=== PATIENT | male | born 1960 | race African-American/Black ===

== ENCOUNTER 2019-08-16 10:36 | Inpatient (IN) | payer OTHER ==
[2019-08-16 11:14] VITALS: BMI 34.6
--- NOTE | 2019-08-16 11:31 | HP ---
CIWA Score Nausea/Vomitin Muscle Tremors: 3 Anxiety: 3 Agitation: 3 Paroxysmal Sweats: 1-Minimal Palms Moist Orientation: 0-Oriented Tacttile Disturbances: 0-None Auditory Disturbances: 0-None Visual Disturbances: 1-Very Mild Sensitivity Headache: 0-None Present CIWA-Ar Total Score: 14 - Admission Criteria OASAS Guidelines: Admission for Medically Managed Detox: Requires at least one of the followin. CIWA greater than 12 2. Seizures within the past 24 hours 3. Delirium tremens within the past 24 hours 4. Hallucinations within the past 24 hours 5. Acute intervention needed for co occurring medical disorder 6. Acute intervention needed for co occurring psychiatric disorder 7. Severe withdrawal that cannot be handled at a lower level of care (continued vomiting, continued diarrhea, abnormal vital signs) requiring intravenous medication and/or fluids 8. Admitting History and Physical - Admission Chief Complaint: " I want to go to detox because I got to stop using alcohol and cocaine." History of Present Illness: 58 year old black male with history of alcohol dependence with withdrawal and cocaine use disorder. He is using alcohol: 5-6 cans of beer daily and 1/2 - 1pint of vodka as well, last used 08/15/19 and been drinking since the age of [age] years old. He admits to [facility] and last one was 11/2018. He denies withdrawal seizures. Hospitalized once for pancreatitis from overdrinking. He is using cocaine about $20-$800 per day. He smokes 1 pack every other day, since age of [age] years old PMH: HTN, DM, Hypertriglyceridemia Psurg: Thyroidectomy due 5 mmg malignant tumor. He received chemotherapy for 1 month. Psych: None History Source: Patient Limitations to Obtaining History: No Limitations - Past Medical History Cardiovascular: Yes: HTN, Hyperlipdemia Endocrine: Yes: Diabetes Mellitus, Hypothyroidism - Past Surgical History Past Surgical History: Yes: None - Advance Directives Advance Directives: No: Living Will, Health Care Proxy, DNR - Alcohol/Substance Use Hx Alcohol Use: Yes (6 beers daily) Number of Drinks Daily: 6 History of Substance Use: reports: Cocaine Date of Last Use: 08/15/19 - Social History Usual Living Arrangement: Yes: Alone Do you think of yourself as: Straight/Heterosexual ADL: Independent Occupation: unemployed History of Recent Travel: No Admission ROS S - HPI Allergies/Adverse Reactions: Allergies Allergy/AdvReac Type Severity Reaction Status Date / Time clindamycin Allergy Hives Verified 08/16/19 10:57 Exam Limitations: No Limitations - Ebola screening Have you traveled outside of the country in the last 21 days: No Have you had contact with anyone from an Ebola affected area: No Have you been sick,other than usual withdrawal symptoms: No Do you have a fever: No - Review of Systems Constitutional: No Symptoms Reported EENT: reports: No Symptoms Reported Respiratory: reports: No Symptoms reported Cardiac: reports: No Symptoms Reported GI: reports: No Symptoms Reported : reports: No Symptoms Reported Musculoskeletal: reports: Back Pain, Muscle Pain Integumentary: reports: No Symptoms Reported Neuro: reports: No Symptoms reported Endocrine: reports: No Symptoms Reported Hematology: reports: No Symptoms Reported Psychiatric: reports: Judgement Intact, Mood/Affect Appropiate, Orientated x3 Other Systems: Reviewed and Negative Patient History - Patient Medical History Hx Anemia: No Hx Asthma: No Hx Chronic Obstructive Pulmonary Disease (COPD): No Hx Cancer: Yes (thyroid cancer removed 2004) Hx Cardiac Disorders: No Hx Congestive Heart Failure: No Hx Hypertension: Yes Hx Hypercholesterolemia: Yes Hx Pacemaker: No HX Cerebrovascular Accident: No Hx Seizures: No Hx Dementia: No Hx Diabetes: Yes Hx Gastrointestinal Disorders: No Hx Liver Disease: Yes (elevated liver enzymes) Hx Genitourinary Disorders: No Hx Sexually Transmitted Disorders: No Hx Renal Disease (ESRD): No Hx Thyroid Disease: Yes Hx Human Immunodeficiency Virus (HIV): No Hx Hepatitis C: No Hx Depression: No Hx Suicide Attempt: No Hx Bipolar Disorder: No Hx Schizophrenia: No - Patient Surgical History Past Surgical History: Yes Hx Neurologic Surgery: No Hx Cataract Extraction: No Hx Cardiac Surgery: No Hx Lung Surgery: No Hx Breast Surgery: No Hx Breast Biopsy: No Hx Abdominal Surgery: No Hx Appendectomy: No Hx Cholecystectomy: No Hx Genitourinary Surgery: No Hx Section: No Hx Orthopedic Surgery: No Hx Hysterectomy: No Other Surgical History: thyroidectomy Anesthesia Reaction: No - PPD History Previous Implant?: Yes Documented Results: Negative w/o proof Implanted On Prior R Admission?: No Date: 11/17/18 (done at [facility]) Results: negative PPD to be Administered?: Yes - Smoking Cessation Smoking history: Current every day smoker Have you smoked in the past 12 months: Yes Aproximately how many cigarettes per day: 5 Hx Chewing Tobacco Use: No Initiated information on smoking cessation: Yes 'Breaking Loose' booklet given: 08/16/19 - Substances abused Alcohol Substance route: Oral Frequency: Daily Amount used: 5-6 cans of beers & 1- 1 1/2 pints of beers Age of first use: 19 Date of last use: 08/15/19 Cocaine Substance route: Inhalation Frequency: 3-6 times per week Amount used: $800 Age of first use: 26 Date of last use: 08/13/19 Admission Physical Exam [facility] - Vital Signs Vital Signs: Vital Signs - 24 hr 08/16/19 10:54 Temperature 97.0 F L Pulse Rate 59 L Respiratory 16 Rate Blood Pressure 154/95 - Physical General Appearance: Yes: Moderate Distress, Tremorous, Irritable, Sweating, Anxious HEENTM: Yes: EOMI, Hearing grossly Normal, Normal ENT Inspection, Normocephalic , Normal Voice, SHY, Pharynx Normal, Tm's normal Respiratory: Yes: Chest Non-Tender, Lungs Clear, Normal Breath Sounds, No Respiratory Distress, No Accessory Muscle Use, Surgical Scar (lower neck scar from thyroidectomy) Neck: Yes: No masses,lesions,Nodules, Supple, Trachea in good position Breast: Yes: Within Normal Limits Cardiology: Yes: Regular Rhythm, Regular Rate, S1, S2 Abdominal: Yes: Normal Bowel Sounds, Non Tender, Soft, Protuberent, Other (some red scaley patches on lower abdomen). 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, Fully Oriented, Alert, Motor Strength 5/5, Normal Mood/Affect, Normal Response Integumentary: Yes: Normal Color, Warm Lymphatic: Yes: Within Normal Limits - Diagnostic (1) Alcohol dependence with withdrawal Current Visit: Yes Status: Acute (2) Cocaine use disorder Current Visit: Yes Status: Acute Cleared for Admission [facility] - Detox or Rehab [facility] Level of Care: Medically Managed (ATIVAN DETOX PROTOCOL) Detox Regimen/Protocol: Not Applicable (ativan detox protocol) Claeared for Rehab Admission: No Screened but not Admitted - Documentation of Visit Screened but not Admitted: No Vital Signs - Vital Signs Vital signs refused: No Inpatient Rehab Admission - Rehab Decision to Admit Inpatient rehab admission?: No
[2019-08-16] MEDS ORDERED: MAG HYDROX/AL HYDROX/SIMETH 30 ML UNIT-DOSE CUP PO PRN (11:51)
[2019-08-16] MEDS ORDERED: ACETAMINOPHEN 325 MG TABLET (FP) PO PRN ×2 (11:51)
[2019-08-16] MEDS ORDERED: MELATONIN 5 MG TABLETS PO PRN (11:51)
[2019-08-16] MEDS ORDERED: LORazepam 1 MG TABLET PO PRN (11:51)
[2019-08-16] MEDS ORDERED: BISMUTH SUBSALICYLATE 524 MG/30 ML UD PO PRN (11:51)
[2019-08-16] MEDS ORDERED: MENTHOL/PHENOL 1 EACH UD MM PRN (11:51)
[2019-08-16] MEDS ORDERED: IBUPROFEN 400 MG TABLET (FP) PO PRN (11:51)
[2019-08-16] MEDS ORDERED: MAGNESIUM CITRATE 300 ML BOTTLE PO PRN (11:51)
[2019-08-16] MEDS ORDERED: METHOCARBAMOL 500 MG TABLET PO PRN (11:51)
[2019-08-16] MEDS ORDERED: hydrOXYzine PAMOATE 25 MG CAPSULE (FP) PO PRN (11:51)
[2019-08-16] MEDS ORDERED: MAGNESIUM HYDROX 2400MG/30ML ORAL SUSPENSION 30 ML CUP PO PRN (11:51)
[2019-08-16] MEDS: LORazepam 2 MG TABLET PO SCH ×3 (13:04→22:20)
[2019-08-16 15:38] LABS: HEMATOCRIT 41.5 % (35.4-49); HEMOGLOBIN 13.7 GM/dL (11.7-16.9); MCHC 32.9 g/dl (32.0-35.9); MEAN CELL VOLUME 94.2 fl (80-96); MEAN PLT VOLUME 8.3 fl (7.5-11.1); PLATELET COUNT 266 K/MM3 (134-434); RBC 4.41 M/mm3 (4.00-5.60); RDW 14.4 % (11.9-15.9); WHITE BLOOD COUNT 5.3 K/mm3 (4.0-10.0)
[2019-08-16 15:42] LABS: ALBUMIN 3.9 g/dl (3.4-5.0); BILIRUBIN,TOTAL 0.2 mg/dL (0.2-1); BLOOD UREA NITROGEN 9.5 mg/dL (7-18); CALCIUM 8.5 mg/dL (8.5-10.1); POTASSIUM 4.2 mmol/L (3.5-5.1); TOT PROT 7.3 g/dl (6.4-8.2)
[2019-08-16] MEDS: metFORMIN HCL 500 MG TABLET (FP) PO SCH (17:30)
[2019-08-16] MEDS: GEMFIBROZIL 600 MG TABLET (FP) PO SCH (17:49)
[2019-08-16] MEDS: THIAMINE HCL 100 MG TABLET (FP) PO SCH (22:20)
[2019-08-16] MEDS: ATENOLOL 50 MG TABLET (FP) PO SCH (22:20)
[2019-08-17] MEDS: LORazepam 2 MG TABLET PO SCH ×4 (06:32→22:29)
[2019-08-17] MEDS: glipiZIDE 10 MG TABLET (FP) PO SCH (07:32)
[2019-08-17] MEDS: metFORMIN HCL 500 MG TABLET (FP) PO SCH ×2 (07:33→17:49)
[2019-08-17] MEDS: LEVOTHYROXINE NA 100 MCG TABLET (FP) PO SCH (07:33)
[2019-08-17] MEDS: PATIENT'S OWN MEDICATION (NON-FORMULARY) (Insulin Glargine,Hum.Rec.Anlog [Basaglar Kwikpen SQ SCH (07:36)
--- NOTE | 2019-08-17 10:14 | PN ---
S CIWA - CIWA Score Nausea/Vomitin-Mild Nausea/No Vomiting Muscle Tremors: 2 Anxiety: 2 Agitation: 2 Paroxysmal Sweats: 1-Minimal Palms Moist Orientation: 0-Oriented Tacttile Disturbances: 1-Very Mild Itch/Numbness Auditory Disturbances: 0-None Visual Disturbances: 0-None Headache: 2-Mild CIWA-Ar Total Score: 11 S Progress Note (SOAP) Subjective: alert,irritable,anxious,interrupted sleep,tremor Objective: 08/17/19 10:12 Vital Signs Temperature 97.3 F L 08/17/19 09:14 Pulse Rate 75 08/17/19 09:14 Respiratory Rate 18 08/17/19 09:14 Blood Pressure 114/75 08/17/19 09:14 O2 Sat by Pulse Oximetry (%) Laboratory Last Values WBC 5.3 K/mm3 (4.0-10.0) 08/16/19 12:15 RBC 4.41 M/mm3 (4.00-5.60) 08/16/19 12:15 Hgb 13.7 GM/dL (11.7-16.9) 08/16/19 12:15 Hct 41.5 % (35.4-49) 08/16/19 12:15 MCV 94.2 fl (80-96) 08/16/19 12:15 MCH 31.0 pg (25.7-33.7) 08/16/19 12:15 MCHC 32.9 g/dl (32.0-35.9) 08/16/19 12:15 RDW 14.4 % (11.9-15.9) 08/16/19 12:15 Plt Count 266 K/MM3 (134-434) 08/16/19 12:15 MPV 8.3 fl (7.5-11.1) 08/16/19 12:15 Sodium 142 mmol/L (136-145) 08/16/19 12:15 Potassium 4.2 mmol/L (3.5-5.1) 08/16/19 12:15 Chloride 108 mmol/L (98-107) H 08/16/19 12:15 Carbon Dioxide 28 mmol/L (21-32) 08/16/19 12:15 Anion Gap 6 MMOL/L (8-16) L 08/16/19 12:15 BUN 9.5 mg/dL (7-18) 08/16/19 12:15 Creatinine 1.0 mg/dL (0.55-1.3) 08/16/19 12:15 Est GFR (CKD-EPI)AfAm 96.40 08/16/19 12:15 Est GFR (CKD-EPI)NonAf 83.18 08/16/19 12:15 POC Glucometer 129 UNITS (80-120) 08/17/19 07:29 Random Glucose 117 mg/dL (74-106) H 08/16/19 12:15 Calcium 8.5 mg/dL (8.5-10.1) 08/16/19 12:15 Total Bilirubin 0.2 mg/dL (0.2-1) 08/16/19 12:15 AST 17 U/L (15-37) 08/16/19 12:15 ALT 28 U/L (13-61) 08/16/19 12:15 Alkaline Phosphatase 55 U/L (45-117) 08/16/19 12:15 Total Protein 7.3 g/dl (6.4-8.2) 08/16/19 12:15 Albumin 3.9 g/dl (3.4-5.0) 08/16/19 12:15 HIV 1&2 Antibody Screen Negative 08/16/19 12:15 HIV P24 Antigen Negative 08/16/19 12:15 08/17/19 10:13 rpr pending Assessment: 08/17/19 10:13 withdrawal symptom Plan: continue detox ativan regimen,bgm monitoring
[2019-08-17] MEDS: amLODIPine BESYLATE 10 MG TABLET (FP) PO SCH (10:47)
[2019-08-17] MEDS: ATENOLOL 50 MG TABLET (FP) PO SCH ×2 (10:47→22:23)
[2019-08-17] MEDS: NICOTINE 7 MG/24 HOURS TOPICAL PATCH TD SCH (10:47)
[2019-08-17] MEDS: LISINOPRIL 5 MG TABLET (FP) PO SCH (10:47)
[2019-08-17] MEDS: ASPIRIN 81 MG CHEWABLE TABLETS PO SCH (10:47)
[2019-08-17] MEDS: PRENATAL VITAMINS W/ FOLIC ACID TABLET (FP) PO SCH (10:47)
[2019-08-17] MEDS: GEMFIBROZIL 600 MG TABLET (FP) PO SCH (17:51)
[2019-08-17] MEDS: THIAMINE HCL 100 MG TABLET (FP) PO SCH (22:23)
[2019-08-17] MEDS ORDERED: ATENOLOL 50 MG TABLET (FP) PO ONE (22:42)
[2019-08-18] MEDS ORDERED: glipiZIDE 5 MG TABLET (FP) ONE (06:04)
[2019-08-18] MEDS: PATIENT'S OWN MEDICATION (NON-FORMULARY) (Insulin Glargine,Hum.Rec.Anlog [Basaglar Kwikpen SQ SCH (08:27)
[2019-08-18] MEDS: LORazepam 1 MG TABLET PO SCH ×4 (08:27→22:28)
[2019-08-18] MEDS: glipiZIDE 10 MG TABLET (FP) PO SCH (08:27)
[2019-08-18] MEDS: metFORMIN HCL 500 MG TABLET (FP) PO SCH ×2 (08:27→17:39)
[2019-08-18] MEDS: LEVOTHYROXINE NA 100 MCG TABLET (FP) PO SCH (08:28)
--- NOTE | 2019-08-18 09:36 | PN ---
S CIWA - CIWA Score Nausea/Vomitin-Mild Nausea/No Vomiting Muscle Tremors: 2 Anxiety: 2 Agitation: 2 Paroxysmal Sweats: No Perspiration Orientation: 0-Oriented Tacttile Disturbances: 1-Very Mild Itch/Numbness Auditory Disturbances: 0-None Visual Disturbances: 0-None Headache: 1-Very Mild CIWA-Ar Total Score: 9 S Progress Note (SOAP) Subjective: alert,irritable,anxious,interrupted sleep,pain in th body,extremity Objective: 08/18/19 09:35 Vital Signs Temperature 98.6 F 08/18/19 09:15 Pulse Rate 57 L 08/18/19 09:15 Respiratory Rate 18 08/18/19 09:15 Blood Pressure 140/89 08/18/19 09:15 O2 Sat by Pulse Oximetry (%) Laboratory Last Values WBC 5.3 K/mm3 (4.0-10.0) 08/16/19 12:15 RBC 4.41 M/mm3 (4.00-5.60) 08/16/19 12:15 Hgb 13.7 GM/dL (11.7-16.9) 08/16/19 12:15 Hct 41.5 % (35.4-49) 08/16/19 12:15 MCV 94.2 fl (80-96) 08/16/19 12:15 MCH 31.0 pg (25.7-33.7) 08/16/19 12:15 MCHC 32.9 g/dl (32.0-35.9) 08/16/19 12:15 RDW 14.4 % (11.9-15.9) 08/16/19 12:15 Plt Count 266 K/MM3 (134-434) 08/16/19 12:15 MPV 8.3 fl (7.5-11.1) 08/16/19 12:15 Sodium 142 mmol/L (136-145) 08/16/19 12:15 Potassium 4.2 mmol/L (3.5-5.1) 08/16/19 12:15 Chloride 108 mmol/L (98-107) H 08/16/19 12:15 Carbon Dioxide 28 mmol/L (21-32) 08/16/19 12:15 Anion Gap 6 MMOL/L (8-16) L 08/16/19 12:15 BUN 9.5 mg/dL (7-18) 08/16/19 12:15 Creatinine 1.0 mg/dL (0.55-1.3) 08/16/19 12:15 Est GFR (CKD-EPI)AfAm 96.40 08/16/19 12:15 Est GFR (CKD-EPI)NonAf 83.18 08/16/19 12:15 POC Glucometer 105 UNITS (80-120) 08/18/19 06:11 Random Glucose 117 mg/dL (74-106) H 08/16/19 12:15 Calcium 8.5 mg/dL (8.5-10.1) 08/16/19 12:15 Total Bilirubin 0.2 mg/dL (0.2-1) 08/16/19 12:15 AST 17 U/L (15-37) 08/16/19 12:15 ALT 28 U/L (13-61) 08/16/19 12:15 Alkaline Phosphatase 55 U/L (45-117) 08/16/19 12:15 Total Protein 7.3 g/dl (6.4-8.2) 08/16/19 12:15 Albumin 3.9 g/dl (3.4-5.0) 08/16/19 12:15 RPR Titer Nonreactive (NONREACTIVE) 08/16/19 12:15 HIV 1&2 Antibody Screen Negative 08/16/19 12:15 HIV P24 Antigen Negative 08/16/19 12:15 Assessment: 08/18/19 09:35 withdrawal symptom Plan: continue detox ativan regimen
[2019-08-18] MEDS: ATENOLOL 50 MG TABLET (FP) PO SCH ×2 (10:23→22:28)
[2019-08-18] MEDS: PRENATAL VITAMINS W/ FOLIC ACID TABLET (FP) PO SCH (10:23)
[2019-08-18] MEDS: amLODIPine BESYLATE 10 MG TABLET (FP) PO SCH (10:23)
[2019-08-18] MEDS: LISINOPRIL 5 MG TABLET (FP) PO SCH (10:23)
[2019-08-18] MEDS: ASPIRIN 81 MG CHEWABLE TABLETS PO SCH (10:24)
[2019-08-18] MEDS: NICOTINE 7 MG/24 HOURS TOPICAL PATCH TD SCH (10:25)
[2019-08-18] MEDS: GEMFIBROZIL 600 MG TABLET (FP) PO SCH (17:39)
[2019-08-18] MEDS: THIAMINE HCL 100 MG TABLET (FP) PO SCH (22:28)
[2019-08-19] MEDS ORDERED: LORazepam 0.5 MG TABLET PO PRN
[2019-08-19] MEDS ORDERED: glipiZIDE 5 MG TABLET (FP) ONE (05:26)
[2019-08-19] MEDS: metFORMIN HCL 500 MG TABLET (FP) PO SCH ×2 (06:28→16:47)
[2019-08-19] MEDS: LORazepam 0.5 MG TABLET PO SCH ×4 (06:28→22:46)
[2019-08-19] MEDS: LEVOTHYROXINE NA 100 MCG TABLET (FP) PO SCH (06:28)
[2019-08-19] MEDS: glipiZIDE 10 MG TABLET (FP) PO SCH (06:29)
[2019-08-19] MEDS: PATIENT'S OWN MEDICATION (NON-FORMULARY) (Insulin Glargine,Hum.Rec.Anlog [Basaglar Kwikpen SQ SCH (06:32)
--- NOTE | 2019-08-19 10:29 | PN ---
S CIWA - CIWA Score Nausea/Vomitin-Mild Nausea/No Vomiting Muscle Tremors: 1-None Visible, but Opp Anxiety: 1-Mildly Anxious Agitation: 1-Slight > Activity Paroxysmal Sweats: No Perspiration Orientation: 0-Oriented Tacttile Disturbances: 1-Very Mild Itch/Numbness Auditory Disturbances: 0-None Visual Disturbances: 0-None Headache: 1-Very Mild CIWA-Ar Total Score: 6 BHS Progress Note (SOAP) Subjective: alert,irritable,anxious,interrupted sleep Objective: 08/19/19 10:27 Vital Signs Temperature 98.4 F 08/19/19 09:31 Pulse Rate 80 08/19/19 09:31 Respiratory Rate 18 08/19/19 09:31 Blood Pressure 140/90 08/19/19 09:31 O2 Sat by Pulse Oximetry (%) 08/19/19 10:28 bgm 121 Assessment: 08/19/19 10:28 withdrawal symptom Plan: continue detox ativan regimen,discharge in am
[2019-08-19] MEDS: LISINOPRIL 5 MG TABLET (FP) PO SCH (10:40)
[2019-08-19] MEDS: ATENOLOL 50 MG TABLET (FP) PO SCH ×2 (10:40→22:46)
[2019-08-19] MEDS: PRENATAL VITAMINS W/ FOLIC ACID TABLET (FP) PO SCH (10:40)
[2019-08-19] MEDS: NICOTINE 7 MG/24 HOURS TOPICAL PATCH TD SCH (10:40)
[2019-08-19] MEDS: AMMONIUM LACTATE 12% LOTION 225 GM BOTTLE TP SCH ×2 (10:41→23:00)
[2019-08-19] MEDS: amLODIPine BESYLATE 10 MG TABLET (FP) PO SCH (10:41)
[2019-08-19] MEDS: ASPIRIN 81 MG CHEWABLE TABLETS PO SCH (10:41)
[2019-08-19] MEDS: GEMFIBROZIL 600 MG TABLET (FP) PO SCH (16:47)
[2019-08-19] MEDS: THIAMINE HCL 100 MG TABLET (FP) PO SCH (22:46)
[2019-08-20] MEDS ORDERED: LORazepam 0.5 MG TABLET PO ONE (05:00)
[2019-08-20 06:03] VITALS: BP 144/95; PULSE 62; TEMP 98.1
[2019-08-20] MEDS: metFORMIN HCL 500 MG TABLET (FP) PO SCH (06:17)
[2019-08-20] MEDS: PATIENT'S OWN MEDICATION (NON-FORMULARY) (Insulin Glargine,Hum.Rec.Anlog [Basaglar Kwikpen SQ SCH (06:17)
[2019-08-20] MEDS: LEVOTHYROXINE NA 100 MCG TABLET (FP) PO SCH (06:17)
[2019-08-20] MEDS: glipiZIDE 10 MG TABLET (FP) PO SCH (06:17)
--- NOTE | 2019-08-20 08:22 | DS ---
[facility] Detox Discharge Summary Admission Date: 08/16/19 Discharge Date: 08/20/19 - History Present History: Alcohol Dependence, Cocaine Dependence - Physical Exam Results Vital Signs: Vital Signs Temperature 98.1 F 08/20/19 06:02 Pulse Rate 62 08/20/19 06:02 Respiratory Rate 18 08/20/19 06:02 Blood Pressure 144/95 08/20/19 06:02 O2 Sat by Pulse Oximetry (%) Pertinent Admission Physical Exam Findings: pt arrived in withdrawals Vital Signs Temperature 98.1 F 08/20/19 06:02 Pulse Rate 62 08/20/19 06:02 Respiratory Rate 18 08/20/19 06:02 Blood Pressure 144/95 08/20/19 06:02 O2 Sat by Pulse Oximetry (%) Laboratory Tests 08/16/19 08/16/19 08/16/19 12:04 12:15 12:15 WBC 5.3 RBC 4.41 Hgb 13.7 Hct 41.5 MCV 94.2 MCH 31.0 MCHC 32.9 RDW 14.4 Plt Count 266 MPV 8.3 Sodium 142 Potassium 4.2 Chloride 108 H Carbon Dioxide 28 Anion Gap 6 L BUN 9.5 Creatinine 1.0 Est GFR (CKD-EPI)AfAm 96.40 Est GFR (CKD-EPI)NonAf 83.18 POC Glucometer 123 Random Glucose 117 H Calcium 8.5 Total Bilirubin 0.2 AST 17 ALT 28 Alkaline Phosphatase 55 Total Protein 7.3 Albumin 3.9 RPR Titer HIV 1&2 Antibody Screen HIV P24 Antigen 08/16/19 08/16/19 08/17/19 12:15 12:15 07:29 WBC RBC Hgb Hct MCV MCH MCHC RDW Plt Count MPV Sodium Potassium Chloride Carbon Dioxide Anion Gap BUN Creatinine Est GFR (CKD-EPI)AfAm Est GFR (CKD-EPI)NonAf POC Glucometer 129 Random Glucose Calcium Total Bilirubin AST ALT Alkaline Phosphatase Total Protein Albumin RPR Titer Nonreactive HIV 1&2 Antibody Screen Negative HIV P24 Antigen Negative 08/18/19 08/19/19 08/20/19 06:11 06:26 05:40 WBC RBC Hgb Hct MCV MCH MCHC RDW Plt Count MPV Sodium Potassium Chloride Carbon Dioxide Anion Gap BUN Creatinine Est GFR (CKD-EPI)AfAm Est GFR (CKD-EPI)NonAf POC Glucometer 105 121 175 Random Glucose Calcium Total Bilirubin AST ALT Alkaline Phosphatase Total Protein Albumin RPR Titer HIV 1&2 Antibody Screen HIV P24 Antigen today pt is aaox3 ambulating no acute distress no s/s of withdrawals - Treatment Hospital Course: Detox Protocol Followed, Detoxed Safely, Responded well, Discharged Condition Good, Rehab Referral Accepted Patient has Accepted a Rehab Referral to: [facility] - Medication Discharge Medications: Ambulatory Orders Amlodipine Besylate [Norvasc -] 10 mg PO DAILY 08/16/19 Ammonium Lactate Cream [Lac-Hydrin 12% *Cream*] 1 applic TP BID 08/16/19 Aspirin 81 mg PO DAILY 08/16/19 Atenolol [Tenormin -] 50 mg PO BID 08/16/19 Gemfibrozil 600 mg PO BID 08/16/19 Glipizide [Glucotrol -] 10 mg PO DAILY 08/16/19 Insulin Glargine,Hum.rec.anlog [Basaglar Kwikpen U-100] 16 unit SQ DAILY Levothyroxine [Synthroid -] 200 mcg PO DAILY 08/16/19 Lisinopril 5 mg PO DAILY 08/16/19 Metformin HCl [Glucophage] 1,000 mg PO BID 08/16/19 - Diagnosis (1) Alcohol dependence with withdrawal Current Visit: Yes Status: Chronic Qualifiers: Complication of substance-induced condition: uncomplicated Qualified Code(s ): F10.230 - Alcohol dependence with withdrawal, uncomplicated (2) Cocaine use disorder Current Visit: Yes Status: Chronic - AMA Did Patient Leave Against Medical Advice: Yes
== END 2019-08-20 08:55 | disposition home or self-care (01) | DRG 774 ==
LOC: YASAS 10:36 → Y6N 12:08
PROVIDERS: ADMIT Allergy & Immunology; ATTEND Allergy & Immunology
PROC: HZ2ZZZZ Detoxification Services for Substance Abuse Treatment (ICD-10-PCS; principal; 2019-08-16)
DX: F10.230 Alcohol dependence with withdrawal, uncomplicated (principal); F14.10 Cocaine abuse, uncomplicated; I10 Essential (primary) hypertension; E78.5 Hyperlipidemia, unspecified; E11.9 Type 2 diabetes mellitus without complications; Z79.84 Long term (current) use of oral hypoglycemic drugs; E89.0 Postprocedural hypothyroidism; Z88.1 Allergy status to other antibiotic agents
CPT/HCPCS: 36415; 80053; 82962; 85027; 86593; 87389